=== PATIENT | female | born 2000 | race Caucasian/White ===

== ENCOUNTER 2025-01-22 09:06 | Inpatient (IN) ==
[2025-01-22] MEDS ORDERED: CALCIUM CARBONATE 500 MG CHEWABLE TAB PO PRN (09:43)
[2025-01-22] MEDS ORDERED: LIDOCAINE 1% LOCAL 20 ML VIAL INFIL PRN (09:43)
--- NOTE | 2025-01-22 09:46 | History & Physical Report ---
Date of Service January 22, 2025 Assessment & Plan (1) Normal labor: Plan Pt admitted at 40w3d for labor -Cvx /-1 -Desires epidural -GBS neg -Rh pos, RI -Anticipate -BP noted to be elevated-will add on HELLP labs/PC ratio; treat PRN if severe range History of Present Illness Chief Complaint: Labor contractions Primary Care Provider: NO PCP Patient is a 24yo who presents for labor. Contractions started around 1:30am - progressively closer together. Denies LOF but lost mucus plug. Has had some vaginal spotting. Notes some dizziness. Denies vision changes, headaches. Uncomplicated - IOL scheduled on 01/25. Allergies Allergy/AdvReac Type Severity Reaction Status Date / Time No Known Allergies Allergy Verified 01/21/25 14:03 Home Medications Medication Instructions Recorded Confirmed Type PNV no.[id number] PO 06/10/24 01/21/25 History [ Gummies] Patient History Medical History (Updated 01/22/25 @ 10:15 by Audrey Walton MD) Varicella vaccination Vitamin D deficiency (12/12/23) B12 deficiency (12/12/23) Surgical History (Updated 06/10/24 @ 11:02 by Eva Gaston) S/P wisdom tooth extraction Family History (Updated 06/10/24 @ 11:03 by Eva Gaston) Mother Myocardial infarction age 47 Uncle Myocardial infarction Denies family history of Ovarian cancer Breast cancer Colorectal cancer Social History (Updated 06/10/24 @ 10:53 by Eva Gaston) Smoking Status: Never smoker Do You Dip or Chew Tobacco: No; Hx Alcohol Use: No Hx Substance Use: No Preferred Language: Faroese Communication Ability: Effective Television Station Manager Required: No Beliefs That Will Affect Care: None marital status: Single marital status details: maria g Jansen Nia (30) [phone] Current Living Situation: Significant Other Current Living Situation Comment: 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, departmental secretary step children, dog current occupational status: employed current occupation: [employer] director Feels Safe at Home: Yes Assistive Devices: None OB History Review of Systems All systems reviewed & are unremarkable except as noted in HPI & below Physical Exam Constitutional: WD/WN, vitals as above (Appears flushed) Respiratory: normal respiratory effort Psychiatric: Orientation: alert and oriented x 3 Genitourinary: normal external appearance Manual OB Exam: + cervical dilation 7 cm, + cervical effacement 90% and + station -1 OB Exam Monitor Tracing: + external FHT monitor used and + category I Results & Data Vital Signs (Past 12 Hours) Vital Signs Temp Pulse Resp BP 01/22/25 09:25 81 157/95 H 01/22/25 09:16 36.6 C 22 01/22/25 09:13 83 152/92 H Code Status & VTE Plan VTE Prophylaxis Plan VTE Prophylaxis will be ordered: No Monitoring External Monitor Baseline 130/moderate variability/+accels, no decels Tocodynamometer q2-5 min Coding Level of Care Code None Diagnoses Normal labor O80; Z37.9
[2025-01-22] MEDS: LACTATED RINGER'S 1,000 ML IV PRN (09:50)
[2025-01-22 10:13] LABS: Hematocrit (blood only) 35.8 % (37.0-47.0); Hemoglobin 12.4 g/dl (12.0-16.0); Mean Corpuscular Hemoglobin 32.8 pg (25.0-34.0); Mean Corpuscular Volume 94.7 fL (80.0-100.0); Platelet Count 169 K/uL (130-400); RDW Standard Deviation 41.6 fL (36.4-46.3); Red Blood Count 3.78 M/uL (4.20-5.40); White Blood Count 16.41 K/ul (4.8-10.8)
--- NOTE | 2025-01-22 10:13 | Anesthesiology Consultation ---
Date of Service January 22, 2025 Assessment & Plan Chart Review Chart Review: Acceptable Risk for Labor Epidural Consults Requested none ASA ASA2 Proposed Anesthesia Anesthesia Type: Labor Epidural Risk / Benefits Reviewed With: PT / POA / Parent / Guardian, Accepts Plan and Informed Consent Obtained History Height/Weight Height: 5 ft 6 in Weight: 82.117 kg Allergies Allergy/AdvReac Type Severity Reaction Status Date / Time No Known Allergies Allergy Verified 01/21/25 14:03 Medications Home Medications Medication Instructions Recorded Confirmed Last Taken PNV no.[id number] PO 06/10/24 01/21/25 Unknown [ Gummies] Past Medical History Medical History Varicella vaccination Vitamin D deficiency (12/12/23) B12 deficiency (12/12/23) Past Family History Family History Mother Myocardial infarction age 47 Uncle Myocardial infarction Denies family history of Ovarian cancer Breast cancer Colorectal cancer Past Surgical History Surgical History S/P wisdom tooth extraction Social History Smoking Status: Never smoker Do You Dip or Chew Tobacco: No Hx Alcohol Use: No Hx Substance Use: No Review of Systems Constitutional: as per Subjective / HPI Respiratory: as per Subjective / HPI Cardiovascular: as per Subjective / HPI Gastrointestinal: + nausea and + vomiting labor pain Neurologic: no localized weakness, no paralysis, no loss of sensation, no numbness, no paresthesia and no radiating pain Psychiatric: as per Subjective / HPI Endocrine: as per Subjective / HPI Hematologic / Lymphatic: as per Subjective / HPI Allergy / Immunological: as per Subjective / HPI Physical Exam Vital Signs Last Vital Signs Temp 36.6 C 01/22/25 09:16 Pulse 73 01/22/25 10:03 Resp 22 01/22/25 09:16 BP 162/106 H 01/22/25 10:03 Constitutional labor pain ENMT Thyromental Distance: > or= 3.5 Finger Breadths Mallampati Class: II Neck normal visual inspection Respiratory normal respiratory effort Cardiovascular Rate/Rhythm: regular rate and regular rhythm Chest (Breasts) Chest: no pacemaker Musculoskeletal Spine: normal cervical ROM Neurologic moves all extremities Motor/Sensory: no sensory deficit Psychiatric Orientation: alert and oriented x 3
[2025-01-22] MEDS: LIDOCAINE 2%/EPINEPHRINE 1:200,000 20 ML PF ONE (10:28)
[2025-01-22 10:30] LABS: Alanine Aminotransferase 7.0 U/L (7-52); Albumin Globulin Ratio 0.8 (0.9-2); Albumin Level 3.3 gm/dl (3.4-5.0); Alkaline Phosphatase 189.0 U/L (34-104); Anion Gap 12.0 (3-11); Bilirubin,Total 0.4 mg/dl (0.2-1.0); Blood Urea Nitrogen 13.0 mg/dl (6-23); Calcium 9.2 mg/dl (8.6-10.3); Carbon Dioxide 20.0 mmol/L (21-32); Chloride 101.0 mmol/L (98-107); Creatinine Clr Calc Pharmacy 149.8 ml/min; Globulin 3.9 gm/dl (2.5-4.0); Glucose 98.0 mg/dl (70-99(Fasting)); Potassium 3.8 mmol/L (3.5-5.1); Sodium 133.0 mmol/L (136-145); Total Protein 7.2 gm/dl (6.0-8.3)
[2025-01-22] MEDS: SODIUM CHLORIDE 0.9% PF INJ 10 ML VIAL ONE (10:31)
[2025-01-22] MEDS: BUPIVACAINE 0.25% PF 30 ML VIAL ONE (10:31)
[2025-01-22] MEDS: fentANYL 2 MCG/ML BUPIVacaine 0.125%-NSS 100ML BAG ONE ×2 (10:33→17:02)
[2025-01-22 10:36] LABS: Protein Creatinine Ratio Urine 2.2 (0-0.2); Total Protein Urine Random 412.2 mg/dl (0-11.9)
[2025-01-22] MEDS ORDERED: LIDOCAINE 2% MPF LOCAL 5 ML VIAL EPI PRN (10:46)
[2025-01-22] MEDS ORDERED: diphenhydrAMINE 50 MG/ML VIAL IV PRN (10:46)
[2025-01-22] MEDS ORDERED: NALOXONE HCL 0.4 MG/1 ML VIAL/CARP IV PRN (10:46)
[2025-01-22] MEDS ORDERED: NALBUPHINE HCL INJ 10 MG/ML AMP IV PRN (10:46)
[2025-01-22] MEDS ORDERED: ROPIVACAINE 0.5% PF 5 MG/ML 20 ML VIAL EPI PRN (10:46)
[2025-01-22] MEDS ORDERED: NALOXONE HCL 1 MG in SODIUM CHLORIDE 0.9% 1,000 ML IV PRN (10:46)
[2025-01-22] MEDS: SODIUM CHLORIDE 0.9% PF INJ 10 ML VIAL EPI PRN (11:46)
[2025-01-22] MEDS: BUPIVACAINE 0.25% PF 30 ML VIAL EPI PRN (11:46)
[2025-01-22] MEDS: BUPIVACAINE 0.25% PF 30 ML VIAL EPI STA (11:58)
[2025-01-22] MEDS: LIDOCAINE 2%/EPINEPHRINE 1:200,000 20 ML PF EPI STA (12:13)
[2025-01-22] MEDS: SODIUM CHLORIDE 0.9% PF INJ 10 ML VIAL EPI STA (12:17)
--- NOTE | 2025-01-22 12:35 | Obstetrical Progress Note ---
Date of Service January 22, 2025 Assessment & Plan (1) Normal labor: Plan AROM performed in normal sterile fashion, cervix check as above, meconium fluid. Pt tolerated well. S/P epidural BP normotensive currently, has not needed PRN treatments yet, will continue to monitor. HELLP labs wnl but p/c ratio noted 2.2. Anticipate Admission and Anticipated Discharge Date Admission Date: January 22, 2025 Subjective Pt much more comfortable with epidural. Physical Exam Constitutional: WD/WN, vitals as above Psychiatric: Orientation: alert and oriented x 3 Genitourinary: normal external appearance Manual OB Exam: + cervical dilation (8-9cm), + cervical effacement 100%, + station 0 and + amniotic fluid meconium Results & Data Vital Signs (Past 12 Hours) Vital Signs Temp Pulse Resp BP Pulse Ox 01/22/25 12:26 82 98 01/22/25 12:24 36.6 C 86 19 127/65 01/22/25 12:21 85 99 01/22/25 12:16 89 97 01/22/25 12:14 72 136/71 01/22/25 12:11 75 99 01/22/25 12:06 84 98 01/22/25 12:04 65 128/76 01/22/25 12:01 69 97 01/22/25 11:56 77 97 01/22/25 11:55 78 138/81 01/22/25 11:51 79 97 01/22/25 11:46 72 97 01/22/25 11:44 71 145/87 H 01/22/25 11:41 77 98 01/22/25 11:36 83 97 01/22/25 11:35 73 154/84 H 01/22/25 11:31 78 97 01/22/25 11:26 70 98 01/22/25 11:25 77 161/94 H 01/22/25 11:21 81 97 01/22/25 11:16 76 97 01/22/25 11:15 69 158/96 H 01/22/25 11:11 83 97 01/22/25 11:06 74 98 01/22/25 11:05 77 140/73 01/22/25 11:01 77 97 01/22/25 10:56 83 97 01/22/25 10:53 77 152/85 H 01/22/25 10:51 78 155/81 H 97 01/22/25 10:48 78 138/78 01/22/25 10:47 69 172/104 H 01/22/25 10:46 68 98 01/22/25 10:45 76 162/95 H 01/22/25 10:43 75 172/94 H 01/22/25 10:42 91 01/22/25 10:42 78 01/22/25 10:42 73 92 01/22/25 10:41 74 176/95 H 01/22/25 10:39 100 H 124/86 01/22/25 10:37 83 157/95 H 01/22/25 10:36 92 H 82 L 01/22/25 10:35 86 153/94 H 01/22/25 10:33 79 152/96 H 01/22/25 10:31 76 156/97 H 91 01/22/25 10:29 73 162/91 H 01/22/25 10:27 86 91 01/22/25 10:22 93 H 91 01/22/25 10:21 89 91 01/22/25 10:16 95 H 84 L 01/22/25 10:11 82 93 01/22/25 10:03 73 162/106 H 01/22/25 09:53 76 161/96 H 01/22/25 09:47 73 177/110 H 01/22/25 09:25 81 157/95 H 01/22/25 09:16 36.6 C 22 01/22/25 09:13 83 152/92 H PG Care Time/CCT Total # of Minutes Spent Total Time Spent with Patient: Total time spent is greater than 50% in coordination of care (as documented) at patient's floor/unit and/or counseling patient: Coding Level of Care Code None Diagnoses Normal labor O80; Z37.9
[2025-01-22] MEDS: OXYTOCIN 30 UNITS/NSS 30 UNITS/500 ML BAG IV PRN (19:47)
--- NOTE | 2025-01-22 20:19 | Delivery Summary ---
Vaginal Delivery Summary Date of Service January 22, 2025 Vaginal Delivery Summary and Vaginal sidewall LAC PREOPERATIVE DIAGNOSIS: 1. Single intrauterine at 40w3d 2. Spontaneous labor POSTOPERATIVE DIAGNOSIS: 1. Single intrauterine at 40w3d 2. Delivered PROCEDURE: 1. Normal spontaneous vaginal delivery SURGEON: Audrey Walton MD ANESTHESIA: Epidural QUANTITATIVE BLOOD LOSS: 699mL FLUIDS: Continuous LR. URINE OUTPUT: 100cc straight cath following delivery COMPLICATIONS: None. CONDITION: Stable. INDICATIONS: 24 yo at 40W3D who presented in spontaneous labor; also noted to have elevated blood pressures with elevated protein creatinine ratio FINDINGS: A viable female infant, weight pending, with Apgars of 8/9 at 1 and 5 minutes respectively. SPECIMEN: Cord blood OPERATIVE REPORT: The patient progressed to 10 cm, 100% effaced and +2 station, pushed over intact perineum with anesthesia to deliver a viable female , weight and Apgars as above. Head of delivered. No nuchal cord was present. Body and shoulders were delivered without difficulty. was delivered to maternal abdomen and nursing staff. Delayed cord clamping was performed for 60 seconds. Cord was clamped and cut. Cord blood was obtained. Placenta delivered spontaneously intact with 3-vessel cord. IV oxytocin and fundal massage; persistent bleeding noted so given 800mcg cytotec rectally and uterus explored to clear of clot/debris. Hemostasis then noted. Vagina, cervix, perineum, and placenta were inspected. Bilateral vaginal sidewall lacerations were repaired using 3-0 chromic in the usual fashion. There was excellent hemostasis. Sponge and needle counts correct x2. No sponges were left behind. Mother and stable in immediate period. [facility] Vaginal Delivery Charge Vaginal Delivery Codes: 28825 global code for the antepartum, delivery, and post- Delivery Type Details:
[2025-01-22] MEDS ORDERED: OXYTOCIN 30 UNITS/NSS 30 UNITS/500 ML BAG IV PRN (20:28)
[2025-01-22] MEDS ORDERED: HYDROCORTISONE ACETATE 25 MG SUPP PR PRN (20:28)
--- NOTE | 2025-01-22 21:20 | Anesthesia Procedure Note ---
Date of Service January 22, 2025 Anesthesia Post Epidural Note Vital Signs Vital Signs: Temp Pulse Resp BP Pulse Ox 36.7 C 88 18 132/89 89 L 01/22/25 19:00 01/22/25 21:08 01/22/25 19:00 01/22/25 21:08 01/22/25 20:27 Pain Intensity Left Abdomen: Pain Intensity: 0 Notes Mental Status: alert / awake / arousable Nausea / Vomiting: adequately controlled Pain: adequately controlled Airway Patency, RR, SpO2: stable & adequate BP & HR: stable & adequate Hydration State: stable & adequate Neuraxial Anesthesia: was administered and sensory block is resolving Anesthetic Complications: no major complications apparent and Pt Satisfied with anesthetic care Epidural: Removed without complications and With tip intact
[2025-01-22] MEDS: DOCUSATE SODIUM 100 MG CAP PO SCH (21:26)
[2025-01-22] MEDS: BENZOCAINE 20% SPRY 85 APPLN/85 GM CAN EXT PRN (21:26)
[2025-01-23] MEDS: IBUPROFEN 600 MG TAB PO PRN (02:31)
[2025-01-23] MEDS: ACETAMINOPHEN 325 MG TAB PO PRN (06:21)
[2025-01-23] MEDS: PRENATAL VITAMIN 1 TAB PO SCH (07:50)
--- NOTE | 2025-01-23 08:19 | Obstetrical Progress Note ---
Date of Service January 23, 2025 Assessment & Plan (1) (spontaneous vaginal delivery): Plan Patient is PPD 1 from Doing well, meeting milestones so far BPs normotensive to mild range, will continue to monitor; consider PO antihypertensive if increase Plan for DC home tomorrow Day #:: 1 Subjective Ambulation: ambulating normally Voiding: no voiding problems Diet Tolerance:: regular diet Lochia:: Moderate Feeding Type:: breast feeding minimal pain Review of Systems All systems reviewed & are unremarkable except as noted in HPI & below Physical Exam Constitutional WD/WN, vitals as above Respiratory normal respiratory effort Psychiatric Orientation: alert and oriented x 3 Genitourinary Speculum/Bimanual Exam: uterus nontender Results & Data Vital Signs (Past 12 Hours) Vital Signs Temp Pulse Pulse Resp BP BP Pulse Ox 01/23/25 02:20 36.6 C 75 18 144/92 H 01/22/25 22:50 36.6 C 91 H 18 139/98 01/22/25 22:10 18 01/22/25 22:08 108 H 136/94 01/22/25 21:53 86 131/90 01/22/25 21:40 18 01/22/25 21:38 85 127/86 01/22/25 21:23 94 H 136/87 01/22/25 21:10 18 01/22/25 21:08 88 132/89 01/22/25 20:55 18 01/22/25 20:53 77 131/81 01/22/25 20:40 18 01/22/25 20:38 90 144/82 H 01/22/25 20:27 98 H 89 L 01/22/25 20:26 92 H 97 01/22/25 20:25 18 01/22/25 20:23 106 H 143/84 H 01/22/25 20:21 100 H 97 01/22/25 20:18 97 H 86 L 01/22/25 20:16 85 98 O2 Del Method 01/23/25 02:20 Room Air 01/22/25 22:50 Room Air 01/22/25 22:10 01/22/25 22:08 01/22/25 21:53 01/22/25 21:40 01/22/25 21:38 01/22/25 21:23 01/22/25 21:10 01/22/25 21:08 01/22/25 20:55 01/22/25 20:53 01/22/25 20:40 01/22/25 20:38 01/22/25 20:27 01/22/25 20:26 01/22/25 20:25 01/22/25 20:23 01/22/25 20:21 01/22/25 20:18 01/22/25 20:16
[2025-01-23] MEDS ORDERED: [UNRECOGNIZED DRUG - REMARK] PO SCH (09:00)
[2025-01-23] MEDS: DIPHTHER/TETAN/PERTUS Vaccine (Tdap, Adol/Adult) 0.5mL IM ONE (11:29)
[2025-01-24 04:03] VITALS: O2SAT 98
[2025-01-24 08:12] VITALS: PULSE 80; RESP 19; TEMP 98.1
--- NOTE | 2025-01-24 08:57 | Obstetrical Progress Note ---
Date of Service January 24, 2025 Assessment & Plan (1) Encounter for care and examination after delivery: Day 2 status post vaginal delivery. Patient doing well and stable for discharge. Occasional lower end of mild range blood pressures noted. Would not recommend treatment at this time. Discussed blood pressure check in 1 week. Preeclampsia precautions reviewed Subjective Ambulation: ambulating normally Voiding: no voiding problems Passing Gas:: Yes Diet Tolerance:: regular diet Lochia:: Moderate Feeding Type:: breast feeding Physical Exam Constitutional WD/WN, vitals as above Respiratory normal respiratory effort; no respiratory distress and no labored breathing Cardiovascular Extremities: no calf tenderness Gastrointestinal (Abdomen) Inspection/Auscultation: abdomen normal to inspection; abdomen not distended Percussion/Palpation: abdomen soft; abdomen nontender, no guarding and abdomen not rigid Genitourinary OB Exam Abdomen: + fundal height Fundus: + firm and + relation to umbilicus (Below); not tender or not boggy Results & Data Vital Signs (Past 12 Hours) Vital Signs Temp Pulse Resp BP BP Pulse Ox O2 Del Method 01/24/25 08:06 36.7 C 80 19 145/92 H 98 Room Air 01/24/25 02:44 36.5 C 62 18 143/93 H 98 Room Air 01/23/25 22:32 36.6 C 79 18 136/81 96 Room Air
[2025-01-24 09:46] VITALS: BP 145/92
== END 2025-01-24 10:50 | disposition home or self-care (01) | DRG 807 ==
LOC: OPB 09:06 → 4S1 09:09 → 4E2 22:37